=== PATIENT | female | born 1935 | race Caucasian/White ===

== ENCOUNTER 2017-04-19 19:40 | Emergency (ER) | payer MEDICARE ==
[~2017-04-19 19:40] MED LIST: ALL220TA PO; ASPI81 PO; DIPH1TAB36; PRIL20TA2; TAB-TAB PO; TYLE500T PO
[2017-04-19 19:51] VITALS: BP 164/75; PULSE 82; RESP 16; TEMP 97.5; O2SAT 99
--- NOTE | 2017-04-19 20:28 | PD ---
HPI . ENT complaint Chief Complaint: ENT Complaint Time Seen by Provider: 20:12 Travel History International Travel<30 days: No Contact w/Intl Traveler<30days: No Traveled to known affect area: No History of Present Illness HPI 81-year-old female with a history of prior esophageal food obstruction, presents after eating chicken, notes that it is lodged in her esophagus, and is having difficulty swallowing. Upon presentation to ED room 25, patient's symptoms resolved, patient able to drink water without difficulty. Patient denies any shortness of breath, chest pain, difficulty speaking. PFSH Past Medical History Narrative Medical Past medical history reviewed Cancer: No Cardiovascular Problems: No Diabetes: No Diminished Hearing: No GERD: Yes Hepatitis: No Hiatal Hernia: Yes Hypertension: No Medical other: Yes (reflux, arthritis) Respiratory: No Thyroid Disease: No Past Surgical History Pacemaker: No Other Surgery: Yes Social History Alcohol Use: Yes Tobacco Use: No Substance Use: No Allergies-Medications (Allergen,Severity, Reaction): Coded Allergies: No Known Allergies (Verified Allergy, Mild, 04/19/17) Reported Meds & Prescriptions Reported Meds & Active Scripts Active Narrative Medication Allergies and medications reviewed Review of Systems Except as stated in HPI: all other systems reviewed are Neg General / Constitutional: No: Fever Eyes: No: Visual changes HENT: No: Headaches Cardiovascular: No: Chest Pain or Discomfort Respiratory: No: Shortness of Breath Gastrointestinal: No: Abdominal Pain Genitourinary: No: Dysuria Musculoskeletal: No: Pain Skin: No Rash Neurologic: No: Weakness Psychiatric: No: Depression Endocrine: No: Polydipsia Hematologic/Lymphatic: No: Easy Bruising Physical Exam Narrative GENERAL: Awake and alert, oriented 3, no acute distress SKIN: Warm and dry. HEAD: Atraumatic. Normocephalic. EYES: Pupils equal and round. No scleral icterus. No injection or drainage. ENT: No nasal bleeding or discharge. Mucous membranes pink and moist. NECK: Trachea midline. No JVD. Patient phonating normally no stridor, no drooling CARDIOVASCULAR: Regular rate and rhythm. RESPIRATORY: No accessory muscle use. Clear to auscultation. Breath sounds equal bilaterally. GASTROINTESTINAL: Abdomen soft, non-tender, nondistended. Hepatic and splenic margins not palpable. MUSCULOSKELETAL: Extremities without clubbing, cyanosis, or edema. No obvious deformities. NEUROLOGICAL: Awake and alert. No obvious cranial nerve deficits. Motor grossly within normal limits. Five out of 5 muscle strength in the arms and legs. Normal speech. PSYCHIATRIC: Appropriate mood and affect; insight and judgment normal. Data Data Last Documented VS Vital Signs Date Time Temp Pulse Resp B/P (MAP) Pulse Ox O2 Delivery O2 Flow Rate FiO2 04/19/17 19:51 97.5 82 16 164/75 (104) 99 MDM Medical Decision Making Medical Screen Exam Complete: Yes Emergency Medical Condition: Yes Medical Record Reviewed: Yes Differential Diagnosis Esophageal food bolus obstruction, resolved Narrative Course See above note. Follow-up with gastroenterology. Diagnosis Primary Impression: Esophageal obstruction due to food impaction Patient Instructions: Esophageal Foreign Body (ED), General Instructions Additional Instructions: Chew food thoroughly, soft diet until follow-up with gastroenterology. Follow- up with your doctor. Return for worsening Disposition: 01 DISCHARGE HOME Condition: Stable Mayo Colby MD Apr 19, 2017 20:28
== END 2017-04-19 20:48 | disposition home or self-care (01) ==
LOC: NEPC 19:40
DX: T18.128A Food in esophagus causing other injury, initial encounter (principal)
CPT/HCPCS: 99283